=== PATIENT | female | born 2000 | race Two or more races ===

== ENCOUNTER 2024-04-21 08:28 | Inpatient (IN) | payer OTHER ==
[~2024-04-21] VITALS: Ht 157.5 cm; Wt 79.4 kg
[2024-04-21] MEDS ORDERED: PHISODERM TOP SOLN 240ML BTL TOP PRN (10:00)
[2024-04-21] MEDS ORDERED: WITCH HAZEL-GLYCERIN PAD TOP PRN (10:00)
[2024-04-21] MEDS ORDERED: miSOPROStol 50 MCG per PRE-CUT 1/2 TAB PO PRN (10:00)
[2024-04-21] MEDS ORDERED: LIDOCAINE 2%HCL (LOCAL ANESTH.) INJ 20ML MDV IJ PRN (10:00)
[2024-04-21] MEDS ORDERED: DERMOPLAST 60ML BOTTLE TOP PRN (10:00)
[2024-04-21 10:43] LABS: Basophils # (auto) 0 10 ^3/uL (0-0.2); Basophils % (auto) 0.4 % (0.0-2.0); Eosinophils # (auto) 0 10 ^3/uL (0-0.8); Eosinophils % (auto) 0.2 % (0.0-7.0); Hematocrit 39.2 % (36.0-46.0); Hemoglobin 13.1 g/dL (12.2-16.2); Lymphocytes # (auto) 1.1 10 ^3/uL (0.4-5.4); Lymphocytes % (auto) 8.3 % (10.0-50.0); Mean Corpuscular Hemoglobin 28.3 pg (28.0-32.0); Mean Corpuscular Hgb Conc. 33.5 g/dL (32.0-36.0); Mean Corpuscular Volume 84.3 fL (80.0-100.0); Monocytes # (auto) 1.2 10 ^3/uL (0-1.3); Monocytes % (auto) 9.4 % (0.0-12.0); Neutrophils # (auto) 10.8 10 ^3/uL (1.6-8.6); Neutrophils % (auto) 81.7 % (37.0-80.0); Red Blood Cells 4.64 10^6/uL (4.0-5.20); Red Cell Distribution Width 14.4 % (11.8-14.3); White Blood Cell 13.2 10^3/uL (4.4-10.8)
[2024-04-21 10:59] LABS: Alanine Aminotransferase 14 U/L (7-40); Albumin 3.7 g/dL (3.2-4.8); Alkaline Phosphatase 268 U/L (46-116); Anion Gap 8 (5-15); Aspartate Aminotransferase 19 U/L (13-40); Bilirubin, Total 0.5 mg/dL (0.2-1.0); Calcium 9.3 mg/dL (8.7-10.4); Carbon Dioxide 20 mmol/L (20-30); Chloride 107 mmol/L (98-107); Glucose 79 mg/dL (74-106); Potassium 3.8 mmol/L (3.5-5.1); Sodium 135 mmol/L (136-145)
[2024-04-21 11:00] LABS: Total Protein 6.4 g/dL (5.7-8.2)
[2024-04-21 11:02] LABS: BUN/Creatinine Ratio 7.8 (10.0-20.0); Blood Urea Nitrogen < 5 mg/dL (9-23)
[2024-04-21 11:05] LABS: Fern Testing Negative
[2024-04-21] MEDS ORDERED: ePHEDrine SULFATE 50 MG/ML AMP IV ONE (11:15)
[2024-04-21 11:32] LABS: INR 0.98 (0.9-1.15); Partial Thromboplastin Time 30.2 SEC (24.5-34.5); Prothrombin Time 10.4 sec (9.3-11.8)
[2024-04-21 11:49] LABS: Urine Bacteria FEW /hpf (None Seen); Urine Blood TRACE /uL (Negative); Urine Clarity Clear (Clear); Urine Color Light-Yellow (Yellow); Urine Mucus FEW (None Seen); Urine Protein, UAD TRACE (Negative); Urine Specific Gravity 1.017 (1.001-1.035); Urine Urobilinogen Normal (Negative); Urine WBC 4 /hpf (0 - 5)
[2024-04-21 11:55] LABS: Amphetamine Screen, Urine Neg (NEGATIVE); Benzodiazephine Screen, Urine Neg (NEGATIVE)
[2024-04-21 11:56] LABS: Barbiturate Scree,Urine Neg (NEGATIVE)
[2024-04-21 11:57] LABS: Cannabinoid Screen, Urine Neg (NEGATIVE); Cocaine Screen, Urine Neg (NEGATIVE); Opiate Scree,Urine Neg (NEGATIVE); Phencyclidine Screen, Urine Neg (NEGATIVE)
[2024-04-21 12:08] LABS: COVID19 ANTIGEN SOFIA FIA POSITIVE (NEGATIVE)
[2024-04-21] MEDS: PENICILLIN G POT 5MIL/D5 50ML 50 ML IV ONE (12:30)
[2024-04-21] MEDS: LACT. RINGERS/OXYTOCIN 20UNITS 1,000 ML IV ONE (12:46)
[2024-04-21] MEDS: ROPIVACAINE HCL 200 ML ONE (14:51)
[2024-04-21] MEDS: LACTATED RINGER'S 1,000 ML IV ONE (14:52)
[2024-04-21] MEDS ORDERED: LACT. RINGERS/OXYTOCIN 20UNITS 500 ML IV ONE (15:30)
[2024-04-21] MEDS: PENICILLIN G POTASSIUM 2,500,000 UNITS in D5W 5% 50 ML IV SCH (16:24)
[2024-04-21] MEDS ORDERED: LACT. RINGERS/OXYTOCIN 20UNITS 1,000 ML IV SCH (17:00)
[2024-04-21] MEDS ORDERED: METHYLERGONOVINE MALEATE 0.2 MG/ML AMP IM ONE (17:57)
[2024-04-21] MEDS: METHYLERGONOVINE MALEATE 0.2 MG/ML AMP IM ONE (17:59)
[2024-04-21] MEDS: LACT. RINGERS/OXYTOCIN 20UNITS 500 ML IV ONE (18:03)
[2024-04-21] MEDS: ceFAZolin 2 GM/D5W50ml 50 ML IV ONE (18:04)
[2024-04-21] MEDS ORDERED: IBUPROFEN 600 MG TAB PO PRN (21:00)
[2024-04-21] MEDS ORDERED: ONDANSETRON ODT 4 MG TAB PO PRN (21:00)
[2024-04-21] MEDS: DOCUSATE SOD 100 MG CAP PO SCH (22:00)
[2024-04-21] MEDS: ceFAZolin 1GM/50ML 50 ML IV SCH (22:00)
[2024-04-21 23:00] VITALS: BP 135/74; PULSE 105; RESP 16; TEMP 98.1; O2SAT 95
[2024-04-22] MEDS: LACTATED RINGER'S 1,000 ML IV SCH (01:48)
[2024-04-22 03:00] VITALS: BP 137/74; PULSE 102; RESP 16; TEMP 98.1; O2SAT 96
[2024-04-22 07:00] VITALS: BP 115/72; PULSE 92; RESP 18; TEMP 97.6; O2SAT 97
[2024-04-22] MEDS: ACETAMINOPHEN 325 MG TAB PO PRN (07:21)
[2024-04-22 08:06] LABS: RPR Non Reactive (Non Reactive)
[2024-04-22 11:30] VITALS: BP 124/77; PULSE 102; RESP 20; TEMP 97.5; O2SAT 97
[2024-04-22 15:15] VITALS: BP 119/81; PULSE 79; RESP 20; TEMP 97.4; O2SAT 98
[2024-04-22] MEDS: CEPHALEXIN 250 MG CAP PO SCH (17:52)
[2024-04-22 19:00] VITALS: BP 111/73; PULSE 88; RESP 18; TEMP 97.6; O2SAT 97
[2024-04-22 23:00] VITALS: BP 126/75; PULSE 83; RESP 18; TEMP 97.9; O2SAT 96
[2024-04-23 03:00] VITALS: BP 134/83; PULSE 81; RESP 18; TEMP 97.9; O2SAT 98
[2024-04-23 07:15] VITALS: BP 132/70; PULSE 87; RESP 17; TEMP 97.9; O2SAT 98
[2024-04-24 18:06] LABS: Treponema pallidum Ab (FTA-Ab) Non Reactive (Non Reactive)
== END 2024-04-23 09:00 | disposition home or self-care (01) | DRG 805 ==
LOC: LDRP 08:28 → OBSVTOIN 09:51 → LDRP 19:36
PROVIDERS: ADMIT Obstetrics & Gynecology; ATTEND Obstetrics & Gynecology
PROC: 10E0XZZ Delivery of Products of Conception, External Approach (ICD-10-PCS; principal; 2024-04-21)
PROC: 0KQM0ZZ Repair Perineum Muscle, Open Approach (ICD-10-PCS; 2024-04-21)
PROC: 3E0DXGC Introduction of Other Therapeutic Substance into Mouth and Pharynx, External Approach (ICD-10-PCS; 2024-04-21)
PROC: 0UQMXZZ Repair Vulva, External Approach (ICD-10-PCS; 2024-04-21)
PROC: 3E0R3BZ Introduction of Anesthetic Agent into Spinal Canal, Percutaneous Approach (ICD-10-PCS; 2024-04-21)
PROC: 00HU33Z Insertion of Infusion Device into Spinal Canal, Percutaneous Approach (ICD-10-PCS; 2024-04-21)
DX: O42.913 Preterm premature rupture of membranes, unspecified as to length of time between rupture and onset of labor, third trimester (principal); O60.14X0 Preterm labor third trimester with preterm delivery third trimester, not applicable or unspecified; Z37.0 Single live birth; U07.1 COVID-19; O98.52 Other viral diseases complicating childbirth; O70.1 Second degree perineal laceration during delivery; Z3A.36 36 weeks gestation of pregnancy
CPT/HCPCS: 36415; 59025; 59409; 62282; 80053; 80307; 81001; 81002; 84112; 85025; 85610; 85730; 86592; 86803; 86850; 86900; 86901; 87426; 94760; 96360; 96361; 96365; 96372; G0378; J2540; J2590; J7060